=== PATIENT | male | born 1965 | race American Indian/Alaskan Native ===

== ENCOUNTER 2018-02-13 12:52 | Emergency (ER) | payer OTHER ==
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
[2018-02-13 17:37] VITALS: BP 128/67
== END 2018-02-13 17:38 | disposition home or self-care (01) ==
LOC: ED 12:52
DX: S39.012A Strain of muscle, fascia and tendon of lower back, initial encounter (principal); S46.911A Strain of unspecified muscle, fascia and tendon at shoulder and upper arm level, right arm, initial encounter; S46.912A Strain of unspecified muscle, fascia and tendon at shoulder and upper arm level, left arm, initial encounter; Z87.891 Personal history of nicotine dependence; Z91.041 Radiographic dye allergy status; V89.2XXA Person injured in unspecified motor-vehicle accident, traffic, initial encounter; Y93.89 Activity, other specified; Y92.89 Other specified places as the place of occurrence of the external cause; Y99.8 Other external cause status
CPT/HCPCS: 99282

== ENCOUNTER 2020-05-20 21:11 | Emergency (ER) | payer SELFPAY ==
--- NOTE | 2020-05-20 21:41 | Emergency Department Report ---
Blank Doc - Documentation Documentation: 54-year-old male that presents with cough, SOB, and body aches. Taken Tylenol prior to ED visit. present in the ED with COVID symtpoms. tachycardia. This initial assessment/diagnostic orders/clinical plan/treatment(s) is/are subject to change based on patient's health status, clinical progression and re- assessment by fellow clinical providers in the ED. Further treatment and workup at subsequent clinical providers discretion. Patient/guardians urged not to elope from the ED as their condition may be serious if not clinically assessed and managed. Initial orders include: 1- Patient sent to [facility] for further evaluation and treatment 2- CXR-R/O PNA w/ possible COVID
--- NOTE | 2020-05-20 22:13 | XRay Report ---
CHEST 2 VIEWS INDICATION / CLINICAL INFORMATION: cough. COMPARISON: None available. FINDINGS: SUPPORT DEVICES: None. HEART / MEDIASTINUM: No significant abnormality. LUNGS / PLEURA: No significant pulmonary or pleural abnormality. No pneumothorax. ADDITIONAL FINDINGS: No significant additional findings. IMPRESSION: 1. No acute findings. Signer Name: Micah Tobias MD Signed: 05/20/2020 10:09 PM Workstation Name: [id number]
--- NOTE | 2020-05-21 00:12 | Emergency Department Report ---
ED General Adult HPI - General Chief complaint: Upper Respiratory Infection Stated complaint: COUGH PUI?: Yes Time Seen by Provider: 05/20/20 21:40 Source: patient, RN notes reviewed Mode of arrival: Ambulatory Limitations: No Limitations - History of Present Illness Initial comments: Please note that for the entire history and physical examination, I had on complete personal protective equipment. The patient is a 44-year-old gentleman, who does not have a local primary care doctor, but denies chronic medical conditions, presenting with a complaint of "possible COVID." Today's day 2/3 of symptoms. Symptoms include fatigue and cough. No pain. No headache, neck pain, chest pain, abdominal pain, irritative or obstructive urinary symptoms. No nausea, vomiting or diarrhea. No loss of taste or smell. His is a potential sick contact. His who is also a patient of mine has symptoms very suspicious for COVID. Symptoms are constant, do not radiate anywhere, and do not have significant exacerbating or relieving factors that the patient is aware of -: days(s) Consistency: other Improves with: other Worsens with: other - Related Data Previous Rx's Medication Instructions Recorded Last Taken Type Acetaminophen [Non-Aspirin Extra 500 mg PO Q6HR PRN #30 tablet 05/21/20 Unknown Rx Strength] Albuterol Sulfate [Proair 90 mcg IH Q4HR PRN #2 aer.[email or web address] 05/21/20 Unknown Rx Respiclick] Ondansetron [Zofran Odt] 4 mg PO Q8HR PRN #20 tab.rapdis 05/21/20 Unknown Rx Allergies Allergy/AdvReac Type Severity Reaction Status Date / Time PO contrast Allergy Vomiting Uncoded 02/13/18 14:03 ED Review of Systems ROS: Stated complaint: COUGH Other details as noted in HPI Constitutional: malaise. denies: fever Eyes: denies: eye discharge ENT: congestion Respiratory: cough Cardiovascular: denies: chest pain Gastrointestinal: denies: abdominal pain Genitourinary: denies: dysuria Musculoskeletal: denies: myalgia Neurological: weakness Hematological/Lymphatic: denies: easy bleeding ED Past Medical Hx - Past Medical History Previous Medical History?: Yes - Surgical History Past Surgical History?: Yes Additional Surgical History: left knee and femur - Social History Smoking Status: Never Smoker Substance Use Type: None - Medications Home Medications: Home Medications Medication Instructions Recorded Confirmed Last Taken Type Acetaminophen [Non-Aspirin Extra 500 mg PO Q6HR PRN #30 tablet 05/21/20 Unknown Rx Strength] Albuterol Sulfate [Proair 90 mcg IH Q4HR PRN #2 aer.[email or web address] 05/21/20 Unknown Rx Respiclick] Ondansetron [Zofran Odt] 4 mg PO Q8HR PRN #20 tab.rapdis 05/21/20 Unknown Rx ED Physical Exam - General Limitations: No Limitations General appearance: alert, in no apparent distress - Head Head exam: Present: atraumatic, normocephalic - Eye Eye exam: Present: normal appearance, EOMI. Absent: nystagmus - ENT ENT exam: Present: normal exam, normal orophraynx, mucous membranes moist, normal external ear exam - Neck Neck exam: Present: normal inspection, full ROM. Absent: tenderness, meningismus - Respiratory Respiratory exam: Present: normal lung sounds bilaterally. Absent: respiratory distress - Cardiovascular Cardiovascular Exam: Present: regular rate, normal rhythm, normal heart sounds. Absent: bradycardia, tachycardia, irregular rhythm, systolic murmur, diastolic murmur, rubs, gallop - GI/Abdominal GI/Abdominal exam: Present: soft, normal bowel sounds. Absent: distended, tenderness, guarding, rebound, rigid, pulsatile mass - Rectal Rectal exam: Present: deferred - Extremities Exam Extremities exam: Present: normal inspection, full ROM, other (2+ pulses noted in the bilateral upper and lower extremities. There is no palpable cord. negative Homans sign. Muscular compartments are soft. The pelvis is stable.). Absent: pedal edema, calf tenderness - Back Exam Back exam: Present: normal inspection, full ROM. Absent: tenderness, CVA tenderness (R), CVA tenderness (L), paraspinal tenderness, vertebral tenderness - Neurological Exam Neurological exam: Present: alert, oriented X3, normal gait, other (No facial droop. Tongue midline. Extraocular movements intact bilaterally. Facial sensation intact to light touch in V1, V2, V3 distribution bilaterally. 5 and a 5 strength in 4 extremities. Sensation intact to light touch in 4 extremities.). Absent: motor sensory deficit - Psychiatric Psychiatric exam: Present: normal affect, normal mood - Skin Skin exam: Present: warm, dry, intact, normal color. Absent: rash ED Course Vital Signs 05/20/20 05/20/20 21:19 21:44 Temperature 98.8 F 98.8 F Pulse Rate 96 H 97 H Respiratory 18 18 Rate Blood Pressure 165/100 165/100 O2 Sat by Pulse 97 100 Oximetry ED Medical Decision Making - Lab Data Vital Signs 05/20/20 05/20/20 21:19 21:44 Temperature 98.8 F 98.8 F Pulse Rate 96 H 97 H Respiratory 18 18 Rate Blood Pressure 165/100 165/100 O2 Sat by Pulse 97 100 Oximetry - Radiology Data Radiology results: report reviewed, image reviewed X-ray of the chest is negative for acute disease Print Report Referring Physician: DILCIA VANCE Patient Name: RUTHIE CALLAHAN Date of : 1965 Sex: Male Report Date: 2020-05-20 Report Status: Finalized Findings [facility] [address] [place] [address] XRay Report Signed Patient: RUTHIE CALLAHAN MR#: [id number] : 1965 Acct:[id number] Age/Sex: 54 / M ADM Date: 05/20/20 Loc: ED Attending Dr: Ordering Physician: DILCIA VANCE NP Date of Service: 05/20/20 Procedure(s): XR chest routine 2V Accession Number(s): [id number] cc: DILCIA VANCE NP Fluoro Time In Minutes: CHEST 2 VIEWS INDICATION / CLINICAL INFORMATION: cough. COMPARISON: None available. FINDINGS: SUPPORT DEVICES: None. HEART / MEDIASTINUM: No significant abnormality. LUNGS / PLEURA: No significant pulmonary or pleural abnormality. No pneumothorax. ADDITIONAL FINDINGS: No significant additional findings. IMPRESSION: 1. No acute findings. Signer Name: Micah Tobias MD Signed: 05/20/2020 10:09 PM Workstation Name: [id number] Transcribed By: BC Dictated By: Micah Tobias MD Electronically Authenticated By: Micah Tobias MD Signed Date/Time: 05/20/202208 DD/ 08 TD/TT: - Medical Decision Making Differential diagnosis, including but not limited to: Viral syndrome, suspected coronavirus Assessment and plan: 54-year-old gentleman with nonspecific constitutional symptoms, during coronavirus pandemic, with a probable exposure in the form of his , presenting on day 2/3. He is afebrile with reassuring vital signs, with a benign and unremarkable physical examination. Patient able to ambulate on room air on a portable pulse oximeter without desaturation. Patient suitable for trial of outpatient management. We discussed the need to self isolate, self quarantine, and expectant management. Patient verbalizes understanding, and he is amenable to this plan of care. He can follow-up with an outpatient primary care doctor Critical care attestation.: If time is entered above; I have spent that time in minutes in the direct care of this critically ill patient, excluding procedure time. ED Disposition Clinical Impression: Suspected 2019 novel coronavirus infection Disposition: DC-01 TO HOME OR SELFCARE Is pt being admited?: No Does the pt Need Aspirin: No Condition: Stable Instructions: COVID-19 Additional Instructions: As we discussed, the patient most likely has novel coronavirus/COVID. the symptoms of COVID will typically persist 10 to 14 days. There is no cure at this time for COVID. Please make certain to self isolate and self quarantine, follow-up with an outpatient primary care doctor within the next 3 to 5 days, wash hands with soap and water frequently, thoroughly and often, patient may take the prescribed medications as needed and directed. Advance diet and drink plenty of fluids as tolerated. Avoid interactions with the very elderly, very young, and those with chronic medical conditions. Return to the emergency room right away with new pain, worsening pain, migration of pain, projectile vomiting, change in mental status, confusion, inability to tolerate liquid feeds, new, worsened or different symptoms not present on the initial emergency room evaluation. Referrals: ISELA HELTON MD [Staff Physician] - 3-5 Days [facility] [Provider Group] - 3-5 Days Forms: Work/School Release Form(ED)
[2020-05-21 01:06] VITALS: BP 148/88
== END 2020-05-21 01:06 | disposition home or self-care (01) ==
LOC: ED 21:11
DX: R05 Cough (principal); R53.83 Other fatigue; Z20.828 Contact with and (suspected) exposure to other viral communicable diseases
CPT/HCPCS: 71046

== ENCOUNTER 2022-08-03 23:04 | Inpatient (IN) | payer SELFPAY ==
--- NOTE | 2022-08-04 02:54 | XRay Report ---
ABDOMEN 2 VIEWS INDICATION / CLINICAL INFORMATION: Abdominal Pain. COMPARISON: None available. FINDINGS: TUBES / LINES: None. BOWEL GAS PATTERN: No significant abnormality. FREE AIR / EXTRALUMINAL GAS: None seen. ADDITIONAL FINDINGS: No significant additional findings. Partially visualized intramedullary femoral loli left femur. CHEST: Visualized chest shows no significant abnormality. IMPRESSION: 1. No significant abnormality. Signer Name: Tip Eaton II, MD Signed: 08/04/2022 2:50 AM Workstation Name: [id number]
[2022-08-04 04:11] LABS: Mucus,Urine FEW /HPF
[2022-08-04 04:22] LABS: Color,Urine Yellow (Yellow)
[2022-08-04] MEDS ORDERED: MORPHINE 4 MG/1 ML INJ IV ONE ×2 (04:46→05:23)
--- NOTE | 2022-08-04 05:22 | Emergency Department Report ---
ED Abdominal Pain HPI - General Chief Complaint: Abdominal Pain Stated Complaint: RT SIDE PAIN Time Seen by Provider: 08/04/22 04:45 Source: patient Mode of arrival: Ambulatory Limitations: No Limitations - History of Present Illness Initial Comments: 56-year-old male with no significant past medical history reports to the ER with complaints of abdominal pain for 2 days on the right flank side. Patient denies any urinary symptoms. Patient reports last bowel movement was 2 days ago on Thursday morning. Patient reported pain is 9 out of 10. Patient denies nausea vomiting no diarrhea. Patient reports no other acute signs or symptoms at this time. Severity scale (0 -10): 0 - Related Data Previous Rx's Medication Instructions Recorded Last Taken Type Acetaminophen [Non-Aspirin Extra 500 mg PO Q6HR PRN #30 tablet 05/21/20 Unknown Rx Strength] Albuterol Sulfate [Proair 90 mcg IH Q4HR PRN #2 aer.pow.ba 05/21/20 Unknown Rx Respiclick] Ondansetron [Zofran Odt] 4 mg PO Q8HR PRN #20 tab.rapdis 05/21/20 Unknown Rx Allergies Allergy/AdvReac Type Severity Reaction Status Date / Time PO contrast Allergy Vomiting Uncoded 02/13/18 14:03 ED Review of Systems ROS: Stated complaint: RT SIDE PAIN Other details as noted in HPI Comment: All other systems reviewed and negative Gastrointestinal: abdominal pain, constipation. denies: nausea, vomiting, diarrhea ED Past Medical Hx - Past Medical History Previous Medical History?: No - Surgical History Additional Surgical History: left knee and femur - Social History Smoking Status: Never Smoker Substance Use Type: None - Medications Home Medications: Home Medications Medication Instructions Recorded Confirmed Last Taken Type Acetaminophen [Non-Aspirin Extra 500 mg PO Q6HR PRN #30 tablet 05/21/20 Unknown Rx Strength] Albuterol Sulfate [Proair 90 mcg IH Q4HR PRN #2 aer.pow.ba 05/21/20 Unknown Rx Respiclick] Ondansetron [Zofran Odt] 4 mg PO Q8HR PRN #20 tab.rapdis 05/21/20 Unknown Rx ED Physical Exam - General Limitations: No Limitations General appearance: alert, in no apparent distress - Head Head exam: Present: atraumatic, normocephalic - Eye Eye exam: Present: normal appearance - ENT ENT exam: Present: mucous membranes moist - Neck Neck exam: Present: normal inspection - Respiratory Respiratory exam: Present: normal lung sounds bilaterally. Absent: respiratory distress - Cardiovascular Cardiovascular Exam: Present: regular rate, normal rhythm. Absent: systolic murmur, diastolic murmur, rubs, gallop - GI/Abdominal GI/Abdominal exam: Present: soft, distended, tenderness (Right flank tenderness), normal bowel sounds. Absent: guarding, rebound, rigid - Rectal Rectal exam: Present: deferred - Extremities Exam Extremities exam: Present: normal inspection - Back Exam Back exam: Present: normal inspection - Neurological Exam Neurological exam: Present: alert, oriented X3 - Psychiatric Psychiatric exam: Present: normal affect, normal mood - Skin Skin exam: Present: warm, dry, intact, normal color. Absent: rash ED Course Vital Signs 08/04/22 08/04/22 08/04/22 02:07 04:58 06:07 Temperature 98.8 F 97.6 F Pulse Rate 84 82 Respiratory 20 18 Rate Blood Pressure 222/99 Blood Pressure 160/95 [Left] O2 Sat by Pulse 99 97 97 Oximetry - Consultations Consultation #1: 08/04/22 06:19 [facility] medicine and spoke with Dr. Madrid for admission for pain control and JIE. Patient has a 4 to 5 mm right ureteral stone associated with hydronephrosis as well as proximal hydroureter. Patient has received 4 mg morphine with no relief in pain as well as 0.5 Dilaudid IV with no relief in pain. Admission is for pain control as well as monitoring of JIE. 4 to 5 mm stone is usually passable and patient can follow-up with outpatient urology. Currently there is no urology on-call however due to patient pain c ontrol not being stable here in the ER patient is needing admission for pain control via IV medications. BUN is 30, creatinine 1.6. Patient does have a WBC of 12.5. Urinalysis does not support any acute infectious process at this time. ED Medical Decision Making - Lab Data Result diagrams: 08/04/22 04:52 08/04/22 04:52 - Radiology Data Radiology results: report reviewed [facility] [address] [place] [address] Cat Scan Report Signed Patient: RUTHIE CALLAHAN MR#: [id number] : 1965 Acct:[id number] Age/Sex: 56 / M ADM Date: 08/03/22 Loc: ED Attending Dr: Ordering Physician: WAN JOY NP Date of Service: 08/04/22 Procedure(s): CT abdomen pelvis wo con Accession Number(s): [id number] cc: WAN JOY NP CT ABDOMEN AND PELVIS WITHOUT CONTRAST INDICATION / CLINICAL INFORMATION: right flank pain. TECHNIQUE: Axial CT images were obtained through the abdomen and pelvis without IV contrast. All CT scans at this location are performed using CT dose reduction for ALARA by means of automated exposure control. COMPARISON: None available. FINDINGS: LOWER CHEST: No significant abnormality of the imaged chest. LIVER: No focal lesion. No acute findings. GALLBLADDER / BILE DUCTS: Numerous small dependent gallstones. No inflammatory changes. Biliary ducts grossly unremarkable. SPLEEN: No significant abnormality. PANCREAS: No significant abnormality. ADRENALS: No significant abnormality. KIDNEYS/URETERS: 4-5 mm proximal right ureteral stone at the level of the inferior endplate of L3. Moderate hydronephrosis and proximal right hydroureter. Moderate perinephric fat stranding surrounding the right kidney. Left kidney demonstrates lower pole exophytic cyst. Additional mid pole nonobstructing nephrolith measuring 2 mm left kidney. STOMACH / DUODENUM / SMALL BOWEL: The stomach, duodenum, and small bowel demonstrate no significant abnormality. No specific abnormality of the mesentery demonstrated. COLON: Diverticulosis without acute inflammation. APPENDIX: No significant abnormality. PERITONEUM: No free air or free fluid are present within the abdomen or pelvis. LYMPH NODES: No significant adenopathy. AORTA / ARTERIES: No significant abnormality. IVC / VEINS: No significant abnormality. URINARY BLADDER: No significant abnormality. REPRODUCTIVE ORGANS: No significant abnormality. SKELETAL SYSTEM: Intramedullary loli left femur. No acute osseous findings. Moderate loss of intervertebral disc space L5-S1 with sclerotic degenerative changes of the endplates. ADDITIONAL ABDOMINAL/PELVIC FINDINGS: None. IMPRESSION: 1. 4-5 mm proximal right ureteral stone with associated hydronephrosis and proximal hydroureter. Moderate perinephric fat stranding likely related to obstruction, correlation with urinalysis and culture recommended as infectious process not excluded based on imaging. 2. Other findings as detailed. Signer Name: Javier Aguilar II, MD Signed: 08/04/2022 5:24 AM Workstation Name: [id number] Transcribed By: CRISTINO Dictated By: JAVIER AGUILAR II, MD Electronically Authenticated By: JAVIER AGUILAR II, MD Signed Date/Time: 08/04/22523 DD/ 8 TD/TT: - Medical Decision Making 56-year-old male 2 days right flank pain. Right flank tenderness noted. With abdominal distention. No other acute abdominal signs noted. CBCWBC of 12.5 CMPcreatinine 1.6, BUN 30, GFR 55 remaining lab unremarkable Urinalysis unremarkable. CT IMPRESSION: 1. 4-5 mm proximal right ureteral stone with associated hydronephrosis and proximal hydroureter. Moderate perinephric fat stranding likely related to obstruction, correlation with urinalysis and culture recommended as infectious process not excluded based on imaging. 2. Other findings as detailed. Patient has received 4 mg of morphine and 0.5 mg of Dilaudid with no relief in pain. Decision to admit due to patient unable to have pain relief with IV medication. Patient needing IV pain medication for pain control. As well as patient has acute kidney injury due to obstruction of stone. No infectious process noted with urinalysis. Consulted with Dr. Madrid for admission for pain control along with acute JIE. [place] [facility] Vital Signs 08/04/22 08/04/22 08/04/22 02:07 04:58 06:07 Temperature 98.8 F 97.6 F Pulse Rate 84 82 Respiratory 20 18 Rate Blood Pressure 222/99 Blood Pressure 160/95 [Left] O2 Sat by Pulse 99 97 97 Oximetry Lab Results 08/04/22 08/04/22 08/04/22 Range/Units 04:52 04:52 Unknown WBC 12.5 H (4.5-11.0) K/mm3 RBC 5.06 H (3.65-5.03) M/mm3 Hgb 13.6 (11.8-15.2) gm/dl Hct 41.7 (35.5-45.6) % MCV 82 L (84-94) fl MCH 27 L (28-32) pg MCHC 33 (32-34) % RDW 15.2 (13.2-15.2) % Plt Count 225 (140-440) K/mm3 Lymph % (Auto) 9.7 L (13.4-35.0) % [place] % (Auto) 8.9 H (0.0-7.3) % Eos % (Auto) 0.0 (0.0-4.3) % Baso % (Auto) 0.1 (0.0-1.8) % Lymph # (Auto) 1.2 (1.2-5.4) K/mm3 [place] # (Auto) 1.1 H (0.0-0.8) K/mm3 Eos # (Auto) 0.0 (0.0-0.4) K/mm3 Baso # (Auto) 0.0 (0.0-0.1) K/mm3 Seg Neutrophils % 81.3 H (40.0-70.0) % Seg Neutrophils # 10.2 H (1.8-7.7) K/mm3 Sodium 140 (137-145) mmol/L Potassium 4.5 (3.6-5.0) mmol/L Chloride 102.0 (98-107) mmol/L Carbon Dioxide 25 (22-30) mmol/L Anion Gap 18 mmol/L BUN 30 H (9-20) mg/dL Creatinine 1.6 H (0.8-1.3) mg/dL Estimated GFR 55 ml/min BUN/Creatinine Ratio 19 % Glucose 96 (75-100) mg/dL Calcium 9.8 (8.4-10.2) mg/dL Total Bilirubin 0.60 (0.1-1.2) mg/dL AST 17 (5-40) units/L ALT 18 (7-56) units/L Alkaline Phosphatase 69 (35-129) units/L Total Protein 7.6 (6.3-8.2) g/dL Albumin 4.9 (3.9-5) g/dL Albumin/Globulin Ratio 1.8 % Urine Color Yellow (Yellow) Urine Turbidity Clear (Clear) Specific [place] (Man) 1.015 (1.003-1.030) Ur Protein (Man) 1+ (Negative) mg/dL Ur Ketones (Man) Negative (Negative) Ur Nitrite (Man) Negative (Negative) Ur Reducing Substances Not Reportable Urine Ictotest Not Reportable Leukocyte Esterase (Man) Negative (Negative) Urine WBC (Auto) 1.0 (0.0-6.0) /HPF Urine RBC (Auto) 1.0 (0.0-6.0) /HPF Urine RBC (Manual) Negative (Negative) Urine Mucus Few /HPF Critical care attestation.: If time is entered above; I have spent that time in minutes in the direct care of this critically ill patient, excluding procedure time. ED Disposition Clinical Impression: Kidney stone on right side, Hydroureter, JIE (acute kidney injury) Hydronephrosis Qualifiers: Hydronephrosis type: with ureteral calculous obstruction Qualified Code(s): N13.2 - Hydronephrosis with renal and ureteral calculous obstruction Disposition: 09 ADMITTED INPATIENT Is pt being admited?: Yes Condition: Stable
[2022-08-04 05:26] LABS: Basophils % (Auto) 0.1 % (0.0-1.8); Hematocrit 41.7 % (35.5-45.6); Hemoglobin 13.6 gm/dl (11.8-15.2); Lymphocytes # (Auto) 1.2 K/mm3 (1.2-5.4); Lymphocytes % (Auto) 9.7 % (13.4-35.0); Mean Corpuscular HGB Conc 33 % (32-34); Mean Corpuscular Volume 82 fl (84-94); Monocytes # (Auto) 1.1 K/mm3 (0.0-0.8); Monocytes % (Auto) 8.9 % (0.0-7.3); Platelet Count 225 K/mm3 (140-440); Red Blood Count 5.06 M/mm3 (3.65-5.03); Red Cell Distribution Width 15.2 % (13.2-15.2)
--- NOTE | 2022-08-04 05:29 | Cat Scan Report ---
CT ABDOMEN AND PELVIS WITHOUT CONTRAST INDICATION / CLINICAL INFORMATION: right flank pain. TECHNIQUE: Axial CT images were obtained through the abdomen and pelvis without IV contrast. All CT scans at this location are performed using CT dose reduction for ALARA by means of automated exposure control. COMPARISON: None available. FINDINGS: LOWER CHEST: No significant abnormality of the imaged chest. LIVER: No focal lesion. No acute findings. GALLBLADDER / BILE DUCTS: Numerous small dependent gallstones. No inflammatory changes. Biliary duct s grossly unremarkable. SPLEEN: No significant abnormality. PANCREAS: No significant abnormality. ADRENALS: No significant abnormality. KIDNEYS/URETERS: 4-5 mm proximal right ureteral stone at the level of the inferior endplate of L3. Mo derate hydronephrosis and proximal right hydroureter. Moderate perinephric fat stranding surrounding the right kidney. Left kidney demonstrates lower pole exophytic cyst. Additional mid pole nonobstruct ing nephrolith measuring 2 mm left kidney. STOMACH / DUODENUM / SMALL BOWEL: The stomach, duodenum, and small bowel demonstrate no significant a bnormality. No specific abnormality of the mesentery demonstrated. COLON: Diverticulosis without acute inflammation. APPENDIX: No significant abnormality. PERITONEUM: No free air or free fluid are present within the abdomen or pelvis. LYMPH NODES: No significant adenopathy. AORTA / ARTERIES: No significant abnormality. IVC / VEINS: No significant abnormality. URINARY BLADDER: No significant abnormality. REPRODUCTIVE ORGANS: No significant abnormality. SKELETAL SYSTEM: Intramedullary olli left femur. No acute osseous findings. Moderate loss of intervert ebral disc space L5-S1 with sclerotic degenerative changes of the endplates. ADDITIONAL ABDOMINAL/PELVIC FINDINGS: None. IMPRESSION: 1. 4-5 mm proximal right ureteral stone with associated hydronephrosis and proximal hydroureter. Mode rate perinephric fat stranding likely related to obstruction, correlation with urinalysis and culture recommended as infectious process not excluded based on imaging. 2. Other findings as detailed. Signer Name: Tip Eaton II, MD Signed: 08/04/2022 5:24 AM Workstation Name: [id number]
[2022-08-04 05:47] LABS: Albumin 4.9 g/dL (3.9-5); Calcium 9.8 mg/dL (8.4-10.2)
[2022-08-04] MEDS ORDERED: KETOROLAC 30 MG/1 ML INJ IV ONE (05:56)
[2022-08-04] MEDS ORDERED: HYDROmorphone 0.5 MG/0.5 ML INJ IV ONE (05:57)
[2022-08-04] MEDS ORDERED: ACETAMINOPHEN 325 MG TAB PO PRN (07:33)
[2022-08-04] MEDS ORDERED: ONDANSETRON 4 MG/2 ML INJ IV PRN (07:33)
[2022-08-04] MEDS ORDERED: KETOROLAC 30 MG/1 ML INJ IV PRN (07:35)
--- NOTE | 2022-08-04 07:38 | History and Physical Report ---
History of Present Illness Date of examination: 08/04/22 History of present illness: HPI: 56-year-old male with no significant past medical history presenting to our facility with right-sided flank pain. Onset of flank pain on Thursday. Patient states that the pain was intermittent at the time and persisted through the weekend. Pain symptoms accelerated to 10 out of 10 pain overnight which is why he presented to our facility. Patient had been taking NSAIDs and prednisone to help alleviate symptoms of patient states he had no relief. Patient denied any headache but did state he had fevers and chills as a result of this pain. He denied any chest pain, nausea, vomiting, abdominal pain, peripheral nerve pain. He denied any urinary symptoms such as dysuria or hematuria. Remainder of ROS negative except for stated above Patient has no prior history of kidney stones. PMHx: Denies PSHx: Left knee surgery, left femur surgery FHx: Reviewed, father had hypertension and colon cancer now . Mother h as Alzheimer's, alive SHx: Tobacco use-denies ETOH Use-denies Recreational Drug Use-denies Good social support, spoke with sister on phone today as well. Medications and Allergies Allergies Allergy/AdvReac Type Severity Reaction Status Date / Time corn Allergy Vomiting Verified 08/04/22 11:22 peas Allergy Vomiting Verified 08/04/22 11:24 PO contrast Allergy Vomiting Uncoded 02/13/18 14:03 Home Medications Medication Instructions Recorded Confirmed Last Taken Type Acetaminophen [Non-Aspirin Extra 500 mg PO Q6HR PRN #30 tablet 05/21/20 08/04/22 Unknown Rx Strength] Albuterol Sulfate [Proair 90 mcg IH Q4HR PRN #2 aer.pow.ba 05/21/20 08/04/22 Unknown Rx Respiclick] Ondansetron [Zofran Odt] 4 mg PO Q8HR PRN #20 tab.rapdis 05/21/20 08/04/22 Unknown Rx Ibuprofen [Motrin] 800 mg PO Q8HR PRN 08/04/22 08/04/22 Unknown History predniSONE [Deltasone] 20 mg PO QDAY 08/04/22 08/04/22 1 Day Ago History ~08/03/22 20 Active Meds: Active Medications Acetaminophen (Acetaminophen 325 Mg Tab) 650 mg PO Q4H PRN PRN Reason: Pain MILD(1-3)/Fever >100.5/WRIGHT Sodium Chloride (Nacl 0.9% 1000 Ml) 1,000 mls @ 150 mls/hr IV DIRECT MARGARETTE Ketorolac Tromethamine (Ketorolac 30 Mg/1 Ml Inj) 15 mg IV Q6H PRN PRN Reason: Pain, Moderate (4-6) Stop: 08/09/22 07:34 Morphine Sulfate (Morphine 2 Mg/1 Ml Inj) 2 mg IV Q4H PRN PRN Reason: Pain, Moderate (4-6) Ondansetron HCl (Ondansetron 4 Mg/2 Ml Inj) 4 mg IV Q8H PRN PRN Reason: Nausea And Vomiting Sodium Chloride (Sodium Chloride 0.9% 10 Ml Flush Syringe) 10 ml IV BID MARGARETTE Sodium Chloride (Sodium Chloride 0.9% 10 Ml Flush Syringe) 10 ml IV PRN PRN PRN Reason: LINE FLUSH Tamsulosin HCl (Tamsulosin 0.4 Mg Cap) 0.4 mg PO DAILY MARGARETTE Review of Systems All systems: negative (negative except for stated above) Exam - Physical Exam Narrative exam: Physical Exam: VITAL SIGNS: Reviewed. GENERAL: The patient appears normally developed, Vital signs as documented. HEAD: No signs of head trauma. EYES: Pupils are equal. Extraocular motions intact. EARS: Hearing grossly intact. MOUTH: Oropharynx is normal. NECK: No adenopathy, no JVD. CHEST: Chest with clear breath sounds bilaterally. No wheezes, rales, or rhonchi. CARDIAC: Regular rate and rhythm. S1 and S2, without murmurs, gallops, or rubs. VASCULAR: No Edema. Peripheral pulses normal and equal in all extremities. ABDOMEN: Right sided flank pain. Soft and non distended abdomen. No rebound or guarding, and no masses palpated. Bowel Sounds normal. MUSCULOSKELETAL: Good range of motion of all major joints. Extremities without clubbing, cyanosis or edema. NEUROLOGIC EXAM: Alert and oriented x 4. no focal sensory or strength deficits. PSYCHIATRIC: Mood normal. SKIN: detail exam as documented in skin assessment - Constitutional Vitals: Temp Pulse Resp BP Pulse Ox 97.6 F 82 18 160/95 97 08/04/22 04:58 08/04/22 04:58 08/04/22 04:58 08/04/22 04:58 08/04/22 06:07 Results - Labs CBC & Chem 7: 08/04/22 04:52 08/04/22 04:52 Labs: Laboratory Last Values WBC 12.5 K/mm3 (4.5-11.0) H 08/04/22 04:52 RBC 5.06 M/mm3 (3.65-5.03) H 08/04/22 04:52 Hgb 13.6 gm/dl (11.8-15.2) 08/04/22 04:52 Hct 41.7 % (35.5-45.6) 08/04/22 04:52 MCV 82 fl (84-94) L 08/04/22 04:52 MCH 27 pg (28-32) L 08/04/22 04:52 MCHC 33 % (32-34) 08/04/22 04:52 RDW 15.2 % (13.2-15.2) 08/04/22 04:52 Plt Count 225 K/mm3 (140-440) 08/04/22 04:52 Lymph % (Auto) 9.7 % (13.4-35.0) L 08/04/22 04:52 [place] % (Auto) 8.9 % (0.0-7.3) H 08/04/22 04:52 Eos % (Auto) 0.0 % (0.0-4.3) 08/04/22 04:52 Baso % (Auto) 0.1 % (0.0-1.8) 08/04/22 04:52 Lymph # (Auto) 1.2 K/mm3 (1.2-5.4) 08/04/22 04:52 [place] # (Auto) 1.1 K/mm3 (0.0-0.8) H 08/04/22 04:52 Eos # (Auto) 0.0 K/mm3 (0.0-0.4) 08/04/22 04:52 Baso # (Auto) 0.0 K/mm3 (0.0-0.1) 08/04/22 04:52 Seg Neutrophils % 81.3 % (40.0-70.0) H 08/04/22 04:52 Seg Neutrophils # 10.2 K/mm3 (1.8-7.7) H 08/04/22 04:52 Sodium 140 mmol/L (137-145) 08/04/22 04:52 Potassium 4.5 mmol/L (3.6-5.0) 08/04/22 04:52 Chloride 102.0 mmol/L (98-107) 08/04/22 04:52 Carbon Dioxide 25 mmol/L (22-30) 08/04/22 04:52 Anion Gap 18 mmol/L 08/04/22 04:52 BUN 30 mg/dL (9-20) H 08/04/22 04:52 Creatinine 1.6 mg/dL (0.8-1.3) H 08/04/22 04:52 Estimated GFR 55 ml/min 08/04/22 04:52 BUN/Creatinine Ratio 19 % 08/04/22 04:52 Glucose 96 mg/dL (75-100) 08/04/22 04:52 Calcium 9.8 mg/dL (8.4-10.2) 08/04/22 04:52 Total Bilirubin 0.60 mg/dL (0.1-1.2) 08/04/22 04:52 AST 17 units/L (5-40) 08/04/22 04:52 ALT 18 units/L (7-56) 08/04/22 04:52 Alkaline Phosphatase 69 units/L (35-129) 08/04/22 04:52 Total Protein 7.6 g/dL (6.3-8.2) 08/04/22 04:52 Albumin 4.9 g/dL (3.9-5) 08/04/22 04:52 Albumin/Globulin Ratio 1.8 % 08/04/22 04:52 Urine Color Yellow (Yellow) 08/04/22 Unknown Urine Turbidity Clear (Clear) 08/04/22 Unknown Specific [place] (Man) 1.015 (1.003-1.030) 08/04/22 Unknown Ur Protein (Man) 1+ mg/dL (Negative) 08/04/22 Unknown Ur Ketones (Man) Negative (Negative) 08/04/22 Unknown Ur Nitrite (Man) Negative (Negative) 08/04/22 Unknown Ur Reducing Substances Not Reportable 08/04/22 Unknown Urine Ictotest Not Reportable 08/04/22 Unknown Leukocyte Esterase (Man) Negative (Negative) 08/04/22 Unknown Urine WBC (Auto) 1.0 /HPF (0.0-6.0) 08/04/22 Unknown Urine RBC (Auto) 1.0 /HPF (0.0-6.0) 08/04/22 Unknown Urine RBC (Manual) Negative (Negative) 08/04/22 Unknown Urine Mucus Few /HPF 08/04/22 Unknown Assessment and Plan Assessment and plan: Assessment and plan #SIRS POA - wbc: 12.5, tachypneic 20 bpm - likely 2/2 to distress from stone - doubt infectious etiology #Obstructive Nephrolithiasis #Hydronephrosis #Hydroureter - 4-5 mm proximal right ureteral stone visualized on CTAP. moderate perinephric stranding, assoicated hydronephrosis and hydroureter. Non obstructive left sided nephrolith also seen in left kidney. - UA negative for WBC, RBC's. - aggresive IVF rehydration - pain control with percocet, morphine IV. AVOID NSAIDS due to kidney function - ordered catch for commode. - If patient fails conservative management, may need to consider urology consultation #Acute kidney injury due to post renal obstruction - 2/2 to stone and nsaid use likely - no prior hx of renal issues - Cr: 1.6 - IVF - avoid nephrotoxins/NSAIDS -serial bmp #Elevated blood pressure - may be pain related - will order prn hydralazine - may need anti-HTN on discharge. #Advance care planning Disease education conducted, care plan discussed, diagnoses discussed, prognosis discussed, patient is full code, patient acknowledges understanding and agree with care plan. Also spoke to pt sister on phone. +30 minutes. CPT 27832 Time Spent: +70 min
[2022-08-04] MEDS ORDERED: MORPHINE 4 MG/1 ML INJ ONE (08:23)
[2022-08-04] MEDS: MORPHINE 2 MG/1 ML INJ IV PRN ×3 (08:31→22:01)
[2022-08-04] MEDS: TAMSULOSIN 0.4 MG CAP PO SCH (10:49)
[2022-08-04] MEDS: oxyCODONE /ACETAMINOPHEN 5-325MG TAB PO PRN ×2 (10:49→19:53)
[2022-08-04] MEDS: SODIUM CHLORIDE 0.9% 1000 ML 1,000 ML IV SCH ×2 (10:49→20:31)
[2022-08-05] MEDS: MORPHINE 2 MG/1 ML INJ IV PRN (01:47)
[2022-08-05] MEDS ORDERED: HYDROmorphone 1 MG/1 ML INJ IV ONE (02:58)
[2022-08-05 04:38] LABS: Basophils % (Auto) 0.2 % (0.0-1.8); Eosinophils % (Auto) 0.1 % (0.0-4.3); Hemoglobin 12.9 gm/dl (11.8-15.2); Lymphocytes # (Auto) 1.9 K/mm3 (1.2-5.4); Lymphocytes % (Auto) 17.4 % (13.4-35.0); Mean Corpuscular HGB Conc 32 % (32-34); Mean Corpuscular Volume 83 fl (84-94); Monocytes # (Auto) 1.5 K/mm3 (0.0-0.8); Platelet Count 203 K/mm3 (140-440); Red Blood Count 4.82 M/mm3 (3.65-5.03); Red Cell Distribution Width 14.9 % (13.2-15.2)
[2022-08-05 05:01] LABS: Calcium 8.9 mg/dL (8.4-10.2)
[2022-08-05] MEDS: HYDROmorphone 1 MG/1 ML INJ IV PRN ×4 (09:57→21:47)
[2022-08-05] MEDS: TAMSULOSIN 0.4 MG CAP PO SCH (09:57)
[2022-08-05] MEDS: SODIUM CHLORIDE 0.9% 1000 ML 1,000 ML IV SCH ×2 (09:58→18:47)
--- NOTE | 2022-08-05 16:47 | Progress Note ---
Assessment and Plan Assessment and plan: #SIRS POA - wbc: 12.5, tachypneic 20 bpm, improved after IVFs - likely 2/2 to distress from stone - doubt infectious etiology, no evidence of UTI on UA; no fevers appreciated #Obstructive Nephrolithiasis #Hydronephrosis #Hydroureter -4-5 mm proximal right ureteral stone visualized on CTAP. moderate perinephric stranding, assoicated hydronephrosis and hydroureter. Non obstructive left sided nephrolith also seen in left kidney. - UA negative for WBC, RBC's. - continue aggressive IVF rehydration and flomax - pain control with percocet, morphine IV. AVOID NSAIDS due to kidney function - Renal ultrasound ordered - If patient fails conservative management, may need to consider urology consultation #Acute kidney injury due to post renal obstruction - 2/2 to stone and nsaid use likely - no prior hx of renal issues - Cr: 1.6, will continue IVFs - avoid nephrotoxins/NSAIDS #Elevated blood pressure - may be pain related, no prior history of HTN - will order prn hydralazine - may need anti-HTN on discharge #Obesity #Weight loss counseling #Exercise counseling - Counseled patient on the importance of weight loss, incorporating exercise, and dietary changes (lean meats, fresh fruits and vegetables, and water intake). Patient expresses understanding. - Time: +15 min #Advance care planning -Disease education conducted, care plan discussed, diagnoses discussed, prognosis discussed, patient is full code, patient acknowledges understanding an d agree with care plan. Also spoke to pt sister on phone. +30 minutes. History Interval history: Patient reports significant right flank pain overnight. The only medication that is (pain was 1 mg of Dilaudid. Patient reports no prior history of kidney stones and denies hematuria and dysuria. He was updated about current plan of care. Hospitalist Physical - Physical exam Narrative exam: GENERAL: Well-developed well-nourished. In no acute distress. HEENT: Normocephalic. Atraumatic. NECK: Supple. CHEST/LUNGS: CTAB on room air HEART/CARDIOVASCULAR: RRR. No murmur, rubs or gallops appreciated. ABDOMEN: +BS. NT/ND. SKIN: No rashes noted. NEURO: No focal motor deficit. Follows all commands and is ambulatory. MUSCULOSKELETAL: No joint effusion BACK: No CVA tenderness appreciated on exam. EXTREMITIES: No cyanosis, clubbing or edema. PSYCH: Cooperative. - Constitutional Vitals: Temp Pulse Resp BP Pulse Ox 98.9 F 85 20 173/88 96 08/05/22 16:23 08/05/22 16:23 08/05/22 16:23 08/05/22 16:23 08/05/22 16:23 Results - Labs CBC & Chem 7: 08/05/22 04:07 08/06/22 04:30 Labs: Laboratory Last Values WBC 10.8 K/mm3 (4.5-11.0) 08/05/22 04:07 RBC 4.82 M/mm3 (3.65-5.03) 08/05/22 04:07 Hgb 12.9 gm/dl (11.8-15.2) 08/05/22 04:07 Hct 40.0 % (35.5-45.6) 08/05/22 04:07 MCV 83 fl (84-94) L 08/05/22 04:07 MCH 27 pg (28-32) L 08/05/22 04:07 MCHC 32 % (32-34) 08/05/22 04:07 RDW 14.9 % (13.2-15.2) 08/05/22 04:07 Plt Count 203 K/mm3 (140-440) 08/05/22 04:07 Lymph % (Auto) 17.4 % (13.4-35.0) 08/05/22 04:07 Dickinson % (Auto) 14.0 % (0.0-7.3) H 08/05/22 04:07 Eos % (Auto) 0.1 % (0.0-4.3) 08/05/22 04:07 Baso % (Auto) 0.2 % (0.0-1.8) 08/05/22 04:07 Lymph # (Auto) 1.9 K/mm3 (1.2-5.4) 08/05/22 04:07 Dickinson # (Auto) 1.5 K/mm3 (0.0-0.8) H 08/05/22 04:07 Eos # (Auto) 0.0 K/mm3 (0.0-0.4) 08/05/22 04:07 Baso # (Auto) 0.0 K/mm3 (0.0-0.1) 08/05/22 04:07 Seg Neutrophils % 68.3 % (40.0-70.0) 08/05/22 04:07 Seg Neutrophils # 7.4 K/mm3 (1.8-7.7) 08/05/22 04:07 Sodium 137 mmol/L (137-145) 08/05/22 04:07 Potassium 4.3 mmol/L (3.6-5.0) 08/05/22 04:07 Chloride 101.9 mmol/L (98-107) 08/05/22 04:07 Carbon Dioxide 25 mmol/L (22-30) 08/05/22 04:07 Anion Gap 14 mmol/L 08/05/22 04:07 BUN 27 mg/dL (9-20) H 08/05/22 04:07 Creatinine 1.5 mg/dL (0.8-1.3) H 08/05/22 04:07 Estimated GFR 59 ml/min 08/05/22 04:07 BUN/Creatinine Ratio 18 % 08/05/22 04:07 Glucose 101 mg/dL (75-100) H 08/05/22 04:07 Calcium 8.9 mg/dL (8.4-10.2) 08/05/22 04:07 Total Bilirubin 0.60 mg/dL (0.1-1.2) 08/04/22 04:52 AST 17 units/L (5-40) 08/04/22 04:52 ALT 18 units/L (7-56) 08/04/22 04:52 Alkaline Phosphatase 69 units/L (35-129) 08/04/22 04:52 Total Protein 7.6 g/dL (6.3-8.2) 08/04/22 04:52 Albumin 4.9 g/dL (3.9-5) 08/04/22 04:52 Albumin/Globulin Ratio 1.8 % 08/04/22 04:52 Urine Color Yellow (Yellow) 08/04/22 Unknown Urine Turbidity Clear (Clear) 08/04/22 Unknown Specific [place] (Man) 1.015 (1.003-1.030) 08/04/22 Unknown Ur Protein (Man) 1+ mg/dL (Negative) 08/04/22 Unknown Ur Ketones (Man) Negative (Negative) 08/04/22 Unknown Ur Nitrite (Man) Negative (Negative) 08/04/22 Unknown Ur Reducing Substances Not Reportable 08/04/22 Unknown Urine Ictotest Not Reportable 08/04/22 Unknown Leukocyte Esterase (Man) Negative (Negative) 08/04/22 Unknown Urine WBC (Auto) 1.0 /HPF (0.0-6.0) 08/04/22 Unknown Urine RBC (Auto) 1.0 /HPF (0.0-6.0) 08/04/22 Unknown Urine RBC (Manual) Negative (Negative) 08/04/22 Unknown Urine Mucus Few /HPF 08/04/22 Unknown Harris/IV: Voiding Method Toilet Active Medications - Current Medications Current Medications: Generic Name Dose Route Start Last Admin Trade Name Freq PRN Reason Stop Dose Admin Acetaminophen 650 mg 08/04/22 07:33 Acetaminophen 325 Mg Tab PO Q4H PRN Pain MILD(1-3)/Fever >100.5/WRIGHT Hydromorphone HCl 0.5 mg 08/05/22 07:35 08/05/22 14:13 Hydromorphone 1 Mg/1 Ml Inj IV 0.5 mg Q4H PRN Administration Pain , Severe (7-10) Sodium Chloride 1,000 mls @ 150 mls/hr 08/04/22 07:45 08/05/22 09:58 Nacl 0.9% 1000 Ml IV 150 mls/hr DIRECT MARGARETTE Administration Ondansetron HCl 4 mg 08/04/22 07:33 Ondansetron 4 Mg/2 Ml Inj IV Q8H PRN Nausea And Vomiting Oxycodone/Acetaminophen 1 tab 08/04/22 07:38 08/04/22 19:53 Oxycodone /Acetaminophen 5-325mg Tab PO 1 tab Q6H PRN Administration Pain, Moderate (4-6) Sodium Chloride 10 ml 08/04/22 10:00 08/05/22 09:58 Sodium Chloride 0.9% 10 Ml Flush Syringe IV 10 ml BID MARGARETTE Administration Sodium Chloride 10 ml 08/04/22 07:33 Sodium Chloride 0.9% 10 Ml Flush Syringe IV PRN PRN LINE FLUSH Tamsulosin HCl 0.4 mg 08/04/22 10:00 08/05/22 09:57 Tamsulosin 0.4 Mg Cap PO 0.4 mg DAILY MARGARETTE Administration
--- NOTE | 2022-08-05 17:30 | Ultrasound Report ---
ULTRASOUND RENAL INDICATION / CLINICAL INFORMATION: evaluate for hydronephrosis. COMPARISON: CT abdomen pelvis performed yesterday. FINDINGS: RIGHT KIDNEY: Length = 11.0 cm. - Echogenicity: Normal. - Parenchymal Thickness: Normal. - Hydronephrosis: None. Previously visualized hydronephrosis has resolved. - Cyst / Mass: None. - Stones: Nonobstructing lower pole stone measuring 7 mm. LEFT KIDNEY: Length = 11.6 cm. - Echogenicity: Normal. - Parenchymal Thickness: Normal. - Hydronephrosis: None. - Cyst / Mass: Simple appearing exophytic lower pole cyst measuring up to 4.4 cm. Hypoechoic upper po le lesion measuring 2.4 x 1.9 x 1.7 cm. - Stones: None seen. URINARY BLADDER: No significant abnormality. FREE FLUID: None. ADDITIONAL FINDINGS: None. IMPRESSION: 1. Previously visualized right hydronephrosis has resolved. There is a nonobstructing right lower ana maria e stone measuring 7 mm. 2. A left upper pole lesion which is not completely characterized. This most likely represents a cyst , but can obtain a multiphase CT to further characterize. Scribed by: Ju Valdes RDMS, NANCY, SAWYER Scribed: 08/05/2022 3:59 PM I have reviewed the images, agree with this report, and edited this report as needed. Signer Name: Wisam Bobo MD Signed: 08/05/2022 5:26 PM Workstation Name: [id number]
[2022-08-05] MEDS: MAGNESIUM HYDROXIDE (MOM) ORAL LIQD UDC PO PRN ×2 (18:10→21:27)
[2022-08-05] MEDS ORDERED: SENNOSIDES/DOCUSATE SODIUM 8.6/50 MG TAB PO SCH (22:00)
[2022-08-05 23:12] VITALS: BP 145/88
[2022-08-06] MEDS: HYDROmorphone 1 MG/1 ML INJ IV PRN ×2 (02:13→06:15)
[2022-08-06 06:28] LABS: BUN/Creatinine Ratio 18; Blood Urea Nitrogen 23 mg/dL (9-20); Calcium 8.6 mg/dL (8.4-10.2); Hemolysis Index 1
[2022-08-06] MEDS: MAGNESIUM HYDROXIDE (MOM) ORAL LIQD UDC PO PRN (07:14)
--- NOTE | 2022-08-06 07:57 | Discharge Summary ---
Providers - Providers Date of Admission: 08/04/22 07:33 Date of discharge: 08/06/22 Attending physician: MEEK CHASE MD Primary care physician: ISELA HELTON Hospitalization Condition: Stable Disposition: 30 STILL A PATIENT Core Measure Documentation - Palliative Care Palliative Care/ Comfort Measures: Not Applicable Exam - Constitutional Vitals: Temp Pulse Resp BP Pulse Ox 97.9 F 85 20 145/88 96 08/05/22 23:11 08/05/22 23:11 08/05/22 23:11 08/05/22 23:11 08/05/22 23:11 Plan Care Plan Goals: Please continue to stay hydrated with plenty of water. Take all medications as they are prescribed to you. If you notice blood in your urine or worsening pain, please return to the ED. Follow up with: ISELA HELTON MD [Primary Care Provider] - 7 Days Prescriptions: Tamsulosin [Flomax] 0.4 mg PO DAILY 14 Days #14 capsule oxyCODONE /ACETAMINOPHEN [Percocet 5/325 mg] 1 tab PO Q6H PRN 3 Days #12 tablet PRN Reason: Pain, Moderate (4-6)
[2022-08-06] MEDS: oxyCODONE /ACETAMINOPHEN 5-325MG TAB PO PRN ×2 (08:12→12:00)
[2022-08-06] MEDS ORDERED: POLYETHYLENE GLYCOL 3350 17 GM POWDER PO SCH (10:00)
[2022-08-06] MEDS ORDERED: DOCUSATE SODIUM 100 MG CAP PO SCH (10:00)
[2022-08-06] MEDS: TAMSULOSIN 0.4 MG CAP PO SCH (10:08)
== END 2022-08-06 11:55 | disposition home or self-care (01) | DRG 694 ==
LOC: ED 23:04 → 3A 08-04 07:33
PROVIDERS: ADMIT Internal Medicine; ATTEND Student in an Organized Health Care Education/Training Program
DX: N13.2 Hydronephrosis with renal and ureteral calculous obstruction (principal); R65.10 Systemic inflammatory response syndrome (SIRS) of non-infectious origin without acute organ dysfunction; N17.9 Acute kidney failure, unspecified; E66.9 Obesity, unspecified; Z71.3 Dietary counseling and surveillance; Z91.018 Allergy to other foods; Z68.32 Body mass index [BMI] 32.0-32.9, adult
CPT/HCPCS: 36415; 74019; 74176; 76770; 80048; 80053; 81001; 85025; 96374; 96375; 99285; G0378; J1170; J2270; J7030